=== PATIENT | female | born 1990 | race Two or more races ===

== ENCOUNTER 2019-02-02 11:55 | Emergency (ER) | payer OTHER ==
[~2019-02-02] VITALS: Ht 152.4 cm; Wt 61.2 kg
[~2019-02-02 11:55] MED LIST: KETO10TA2 PO; PREDNISONE10 MG PO
[2019-02-02] MEDS ORDERED: TUSNEL LIQUID178 ML PO (14:15)
[2019-02-02] MEDS ORDERED: DOLOGEN CAPLET1 EACH PO (14:15)
[2019-02-02] MEDS ORDERED: OSEL75CA PO (14:15)
== END 2019-02-02 14:45 | disposition home or self-care (01) ==
LOC: ER 11:55
DX: B34.9 Viral infection, unspecified (principal)